=== PATIENT | female | born 1985 | race Two or more races ===

== ENCOUNTER 2017-03-14 09:19 | Outpatient (CLI) | payer MEDICAID ==
[~2017-03-14] VITALS: Ht 170.2 cm; Wt 84.6 kg
[~2017-03-14 09:19] MED LIST: FERR27TA PO; PREN1TAB49 PO
[2017-03-14 09:38] VITALS: Ht 170.2 cm; Wt 84.6 kg
[2017-03-14] MEDS ORDERED: FOLI-49 PO (09:38)
[2017-03-14] MEDS ORDERED: CALC-5 PO (09:38)
[2017-03-14 09:39] VITALS: BP 123/72; PULSE 90; RESP 18
[2017-03-14] MEDS ORDERED: ACETAMINOPHEN 500 MG TAB PO STA (09:57)
[2017-03-14] MEDS ORDERED: ONDANSETRON (ODT) 4 MG TAB ODT STA (09:57)
[2017-03-14] MEDS ORDERED: DOCUSATE SODIUM 100 MG CAP PO ONE (10:00)
[2017-03-14 10:17] LABS: BASOPHILS % 0.2 % (0.0-2.0); EOSINOPHILS % 0.2 % (0.0-7.0); HEMATOCRIT 33.3 % (37.0-47.0); HEMOGLOBIN 10.5 g/dl (12.0-16.0); LYMPHOCYTES # 1.1 10^3/ul (0.8-2.9); LYMPHOCYTES % 9.5 % (15.0-51.0); MEAN CORPUSCULAR HEMOGLOBIN 24.8 pg (29.0-33.0); MEAN CORPUSCULAR HGB CONC 31.5 g/dl (32.0-37.0); MEAN CORPUSCULAR VOLUME 78.5 fl (82.0-101.0); MEAN PLATELET VOLUME 10.1 fl (7.4-10.4); MONOCYTE # 0.3 10^3/ul (0.3-0.9); MONOCYTES % 2.1 % (0.0-11.0); NEUTROPHIL # 10.6 10^3/ul (1.6-7.5); NEUTROPHILS % 87.5 % (39.0-77.0); PLATELET COUNT 318 10^3/UL (140-415); RED BLOOD COUNT 4.24 10^6/ul (4.20-5.40); RED CELL DISTRIBUTION WIDTH 14.6 % (11.5-14.5); WHITE BLOOD COUNT 12.1 10^3/ul (4.8-10.8)
[2017-03-14 10:34] LABS: ADD UMIC YES; UR ASCORBIC ACID NEGATIVE (NEGATIVE); UR BACTERIA FEW /HPF (NONE SEEN); UR BILIRUBIN (Dip) NEGATIVE (NEGATIVE); UR BLOOD (Dip) NEGATIVE (NEGATIVE); UR CLARITY SLIGHTLY CLOUDY (CLEAR); UR COLOR YELLOW (YELLOW); UR GLUCOSE (Dip) NEGATIVE (NEGATIVE); UR KETONES (Dip) NEGATIVE (NEGATIVE); UR LEUKOCYTE ESTERASE (Dip) TRACE Leu/ul (NEGATIVE); UR MUCUS FEW /HPF (NONE SEEN); UR NITRITE (Dip) NEGATIVE (NEGATIVE); UR RBC 2 /HPF (0-5); UR SPECIFIC GRAVITY (Dip) 1.026 (1.003-1.030); UR SQUAMOUS EPITHELIAL CELL FEW /HPF (FEW); UR TOTAL PROTEIN (Dip) 1+ mg/dl (NEGATIVE); UR UROBILINOGEN (Dip) NEGATIVE (NEGATIVE)
--- NOTE | 2017-03-14 11:42 | RADRPT ---
PROCEDURE: Limited OB ultrasound CLINICAL INDICATION: Vaginal bleeding TECHNIQUE: Sonographic evaluation to assess the CHARISMA was performed. Transabdominal imaging of the gravid uterus was performed. COMPARISON: No prior exam is available for comparison. FINDINGS: There is a single live intrauterine with a heart rate of 148 bpm. position is cephalic. The placenta is anterior. The CHARISMA measures 10.7 cm. The cervix is closed with a length of 2.6 cm. IMPRESSION: The CHARISMA measures 10.7 cm. RPTAT: HH .Rosalina Jasmine MD, MD Date Time Electronically viewed and signed by .Rosalina Jasmine MD, on 03/14/2017 11:42 .G/
--- NOTE | 2017-03-14 11:57 | RADRPT ---
PROCEDURE: Retroperitoneal US. CLINICAL INDICATION: Flank pain TECHNIQUE: Multiple sonographic images of the kidneys and retroperitoneum were obtained. The imag es were reviewed on a PACS workstation. COMPARISON: No prior studies are available for comparison. FINDINGS: The kidneys are normal in size, contour, cortical thickness and cortical echogenicity. The right kidney measures 11.7 cm. The left kidney measures 12.2 cm. No kidney stones are visualized. There is mild right-sided hydronephrosis. The urinary bladder is not visualized. RPTAT: AA IMPRESSION: Mild right-sided hydronephrosis. .Yosi Forte MD, MD Date Time Electronically viewed and signed by .Yosi Forte MD, on 03/14/2017 11:57 .S/
[2017-03-14] MEDS ORDERED: MEPERIDINE 50 MG INJ IM ONE (12:00)
[2017-03-14] MEDS ORDERED: hydrOXYzine HCL 100 MG INJ IM ONE (12:00)
[2017-03-14] MEDS ORDERED: PROMETHAZINE 25 MG TAB PO ONE (12:30)
--- NOTE | 2017-03-14 14:31 | TRIAGE ---
OB Triage Datetime Report Generated by CPN: 03/14/2017 14:30 Datetime: 03/14/2017 13:30 Stage of : OB Triage Maternal Assessment Level of Consciousness: Fully Conscious Labor Evaluation Frequency: 0 Monitor Mode: External Resting Tone [place]: Relaxed Heart Rate FHR Baseline Rate: 135 Monitor Mode: External US Variability: Moderate 6-25 bpm Accelerations: 15X15 Decelerations: None Pain Assessment Pain Scale: 8 Pain Presence: Constant Pain Type: Ache Pain Location: Abdomen Pain Goal: 3 Pain Relief Measures: Pain Medication Given; Comfort Measures Vaginal Exam Membrane Status: Intact Vaginal Bleeding: None Datetime: 03/14/2017 11:00 Stage of : OB Triage Maternal Assessment Level of Consciousness: Fully Conscious Labor Evaluation Frequency: 0 Monitor Mode: External Resting Tone [place]: Relaxed Heart Rate FHR Baseline Rate: 140 Monitor Mode: External US Variability: Moderate 6-25 bpm Accelerations: 15X15 Decelerations: None Pain Assessment Pain Scale: 8 Pain Presence: Constant Pain Type: Ache Pain Location: Abdomen Pain Goal: 3 Pain Relief Measures: Pain Medication Given; Comfort Measures Vaginal Exam Membrane Status: Intact Vaginal Bleeding: None Datetime: 03/14/2017 10:30 Stage of : OB Triage Maternal Assessment Level of Consciousness: Fully Conscious Labor Evaluation Frequency: 0 Monitor Mode: External Resting Tone [place]: Relaxed Heart Rate FHR Baseline Rate: 130 Monitor Mode: External US Variability: Moderate 6-25 bpm Accelerations: 15X15 Decelerations: Variable Category: Category II Pain Assessment Pain Scale: 8 Pain Presence: Constant Pain Type: Ache Pain Location: Abdomen Pain Goal: 3 Pain Relief Measures: Pain Medication Given; Comfort Measures Vaginal Exam Membrane Status: Intact Vaginal Bleeding: None Datetime: 03/14/2017 09:34 Assessment Type: Triage EGA: 30.4 Maternal Assessment Level of Consciousness: Fully Conscious DTR's/Clonus: DTRs 2+; No Clonus Headache: Denies Blurred Vision: No Respiratory Effort: Unlabored; Regular Rhythm; Equal Expansion Breath Sounds, Left: Clear and Equal Breath Sounds, Right: Clear and Equal Nausea/Vomiting: Denies RUQ Epigastric Pain: Denies Lower Extremities Edema: None Degree: None Upper Extremities Edema: None Degree: None Facial Edema: None Fall Risk Assessment History of Falling: (0) No Secondary Diagnosis: (0) No Ambulatory Aid: (0) Bedrest/Nurse Assist IV Therapy: (0) No Gait: (0) Normal/Bedrest/Immobile Mental Status: (0) Oriented to Own Ability Fall Score: 0 Fall Risk Score Definition: No Risk: No action required Datetime: 03/14/2017 09:33 Time of Arrival: 03/14/2017 09:18 Arrived By: Ambulatory Arrived From: Home Chief Complaint: pt here c/o ABDOMINAL PAIN AND CONSTIPATION X 2 DAYS Movement: Present Contractions: Denies/Absent Rupture of Membranes: Denies Vaginal Bleeding: None Vaginal Discharge: Denies Recent Sexual Intercouse: Denies Abdominal Trauma: Not Applicable Patient Complaints: None Time Provider Notified: 03/14/2017 09:45 Provider Notified: CAMI Initial Plan: EFM/CBC/UA/PO HYDRATION/TYLENOL/ZOFRAN/COLACE/US CVL/CHARISMA/DEMEROL Datetime: 03/14/2017 09:31 Monitor Mode: External Monitor Mode: External US
--- NOTE | 2017-03-14 17:11 | PN ---
Triage Information Date/Time March 14, 2017 Reason for visit: Left flank pain Weeks of Gestation 30 weeks and 4 days /Para Diabetes: none Hypertention: none Additional information 31-year-old with IUP at 30 weeks and 4 days the pain is a care with Dr. Romero presents with a complaint of left flank pain persistent since today with radiation to the lower abdomen and thigh. Denies any fever or chills. Denies any dysuria. Denies any leaking of fluid, vaginal bleeding or decreased movement or uterine contractions. She had some nausea and vomiting and constipation. Reports had not have any bowel movement for 2 days. She also complains of constipation. Objective Vital Signs Date Time Temp Pulse Resp B/P Pulse Ox O2 Delivery O2 Flow Rate FiO2 03/14/17 09:39 98.3 90 18 123/72 97 Room Air Heart Rate: 130's Heart Rate Comments Cat 1 tracing Contractions: None Exam GA" A&O, in mild to moderate distress Abdomen: Soft, gravid, Fundal Height consistent with GA. non tender, no rebound tenderness, no rigidity . No CVA tenderness, NST: Cat 1. No contractions seen on the monitor Results/Medications Result Diagram: 03/14/17 0930 Results 24 hrs Laboratory Tests Test 03/14/17 09:30 White Blood Count 12.1 H Red Blood Count 4.24 Hemoglobin 10.5 L Hematocrit 33.3 L Mean Corpuscular Volume 78.5 L Mean Corpuscular Hemoglobin 24.8 L Mean Corpuscular Hemoglobin Concent 31.5 L Red Cell Distribution Width 14.6 H Platelet Count 318 Mean Platelet Volume 10.1 Neutrophils % 87.5 H Lymphocytes % 9.5 L Monocytes % 2.1 Eosinophils % 0.2 Basophils % 0.2 Nucleated Red Blood Cells % 0.0 Neutrophils # 10.6 H Lymphocytes # 1.1 Monocytes # 0.3 Eosinophils # 0.0 Basophils # 0.0 Nucleated Red Blood Cells # 0.0 Urine Color YELLOW Urine Clarity SLIGHTLY CLOUDY A Urine pH 5.0 Urine Specific [place] 1.026 Urine Ketones NEGATIVE Urine Nitrite NEGATIVE Urine Bilirubin NEGATIVE Urine Urobilinogen NEGATIVE Urine Leukocyte Esterase TRACE A Urine Microscopic RBC 2 Urine Microscopic WBC 7 H Urine Squamous Epithelial Cells FEW Urine Bacteria FEW A Urine Mucus FEW A Urine Hemoglobin NEGATIVE Urine Glucose NEGATIVE Urine Total Protein 1+ H Medications Demerol and Promethazine Tylenol Imaging Results PROCEDURE: Retroperitoneal US. CLINICAL INDICATION: Flank pain TECHNIQUE: Multiple sonographic images of the kidneys and retroperitoneum were obtained. The images were reviewed on a PACS workstation. COMPARISON: No prior studies are available for comparison. FINDINGS: The kidneys are normal in size, contour, cortical thickness and cortical echogenicity. The right kidney measures 11.7 cm. The left kidney measures 12.2 cm. No kidney stones are visualized. There is mild right-sided hydronephrosis. The urinary bladder is not visualized. RPTAT: AA IMPRESSION: Mild right-sided hydronephrosis. PROCEDURE: Limited OB ultrasound CLINICAL INDICATION: Vaginal bleeding TECHNIQUE: Sonographic evaluation to assess the CHARISMA was performed. Transabdominal imaging of the gravid uterus was performed. COMPARISON: No prior exam is available for comparison. FINDINGS: There is a single live intrauterine with a heart rate of 148 bpm. position is cephalic. The placenta is anterior. The CHARISMA measures 10.7 cm. The cervix is closed with a length of 2.6 cm. IMPRESSION: The CHARISMA measures 10.7 cm. Disposition: Discharge Assessment/Plan IUP at 30 weeks and 4 days Left flank pain, likely muscular cramp no CVA tenderness, No evidence of pyelonephritiis Resolved with IV pain meds elevated WBC, likely reactive DC home follow up at 24-48 hours with her PCP PTL precaution, kick counts RTC PRN any other complaint. JASIEL ALMANZA MD Mar 14, 2017 17:11
== END 2017-03-14 14:40 | disposition home or self-care (01) ==
LOC: L-D 09:19 → OBT 09:19
PROVIDERS: ATTEND Obstetrics & Gynecology
DX: O26.893 Other specified pregnancy related conditions, third trimester (principal); R10.9 Unspecified abdominal pain; K59.00 Constipation, unspecified; Z3A.30 30 weeks gestation of pregnancy
CPT/HCPCS: 76775; 76815; 76817; 81001; 85025; 96372; J2175; Z7500; Z7610; G0463

== ENCOUNTER 2017-05-04 09:58 | Outpatient (CLI) | payer MEDICAID, OTHER ==
[~2017-05-04] VITALS: Ht 170.2 cm; Wt 84.5 kg
[~2017-05-04 09:58] MED LIST changes: +CALC-5 PO; +FOLI-49 PO
[2017-05-04 10:01] VITALS: Ht 170.2 cm; Wt 84.5 kg
[2017-05-04 10:02] VITALS: BP 124/75
--- NOTE | 2017-05-04 10:34 | RADRPT ---
PROCEDURE: US OB biophysical profile. CLINICAL INDICATION: Biophysical profile TECHNIQUE: Multiple sonographic images of the pelvis were obtained. The images were reviewed on a PACS workstation. COMPARISON: April 23, 2017 FINDINGS: There is a single live intrauterine , in cephalic presentation. A normal heart rate i s identified measuring 129 beats per minute. The amniotic fluid index is within normal limits measur ing 8.9 cm. The placenta is located anteriorly and grade 2. Biophysical profile: movement 2/2 tone 2/2. breathing 2/2 CHARISMA 2/2 Total 01/30 IMPRESSION: 1. Biophysical profile score of 8/8. 2. Single live intrauterine in cephalic presentation with normal heart rate of 129 b pm. 3. Normal amniotic fluid index of 8.9 cm. Physician Jaspreet Date Time Electronically viewed and signed by Physician Jaspreet on 05/04/2017 10:34 MARIA LUISA/
--- NOTE | 2017-05-04 11:06 | PN ---
Triage Information Date/Time Reason for visit: NST BPP Weeks of Gestation 36+ /Para 4/3 Diabetes: gestational Diabetes management: diet controlled Hypertention: none Objective Vital Signs Date Time Temp Pulse Resp B/P Pulse Ox O2 Delivery O2 Flow Rate FiO2 05/04/17 10:02 98.4 124/75 Room Air Heart Rate: 140's Contractions: None Disposition: Discharge Assessment/Plan NST reassuring BPP 01/30 Precautions discussed Follow up with provider SOFIE OLIVEROS M.D. May 04, 2017 11:05
--- NOTE | 2017-05-04 11:12 | TRIAGE ---
OB Triage Datetime Report Generated by CPN: 05/04/2017 11:12 Datetime: 05/04/2017 11:01 Stage of : OB Triage Datetime: 05/04/2017 11:00 Labor Evaluation Frequency: 0 Monitor Mode: External Pattern: Normal: <= 5 Contractions in 10 Minutes Resting Tone [place]: Relaxed Heart Rate FHR Baseline Rate: 145 Monitor Mode: External US Variability: Moderate 6-25 bpm Accelerations: 15X15 Decelerations: None Category: Category I Datetime: 05/04/2017 10:41 Labor Evaluation Frequency: 0 Monitor Mode: External Pattern: Normal: <= 5 Contractions in 10 Minutes Resting Tone [place]: Relaxed Heart Rate FHR Baseline Rate: 145 Monitor Mode: External US Variability: Moderate 6-25 bpm Accelerations: 15X15 Decelerations: None Category: Category I Datetime: 05/04/2017 10:09 Stage of : OB Triage Assessment Type: Triage Maternal Assessment Level of Consciousness: Fully Conscious DTR's/Clonus: DTRs 2+; No Clonus Headache: Denies Blurred Vision: No Respiratory Effort: Unlabored; Regular Rhythm; Equal Expansion Breath Sounds, Left: Clear and Equal Breath Sounds, Right: Clear and Equal Nausea/Vomiting: Denies RUQ Epigastric Pain: Denies Lower Extremities Edema: None Degree: None Upper Extremities Edema: None Facial Edema: None Temperature Route: Oral Fall Risk Assessment History of Falling: (0) No Secondary Diagnosis: (0) No Ambulatory Aid: (0) Bedrest/Nurse Assist IV Therapy: (0) No Gait: (0) Normal/Bedrest/Immobile Mental Status: (0) Oriented to Own Ability Fall Score: 0 Fall Risk Score Definition: No Risk: No action required Monitor Mode: External Heart Rate FHR Baseline Rate: 145 Monitor Mode: External US Variability: Moderate 6-25 bpm Accelerations: 15X15 Decelerations: None Category: Category I Pain Assessment Pain Scale: 0 Datetime: 05/04/2017 10:08 Time of Arrival: 05/04/2017 09:54 EGA: 37.6 Arrived By: Ambulatory Arrived From: Dr. Burgos Chief Complaint: sent from NST for NST/BPP?CHARISMA for GDM insurance not approved at clinic Movement: Present Contractions: Denies/Absent Rupture of Membranes: Denies Vaginal Bleeding: None Vaginal Discharge: Denies Recent Sexual Intercouse: Denies Abdominal Trauma: Not Applicable Patient Complaints: Other Initial Plan: nst/bpp Datetime: 03/14/2017 14:30 Stage of : OB Triage Maternal Assessment Level of Consciousness: Fully Conscious Labor Evaluation Frequency: 0 Monitor Mode: External Resting Tone [place]: Relaxed Heart Rate FHR Baseline Rate: 135 Monitor Mode: External US Variability: Moderate 6-25 bpm Accelerations: 15X15 Decelerations: None Pain Assessment Pain Scale: 8 Pain Presence: Constant Pain Type: Ache Pain Location: Abdomen Pain Goal: 3 Pain Relief Measures: Pain Medication Given; Comfort Measures Vaginal Exam Membrane Status: Intact Vaginal Bleeding: None Datetime: 03/14/2017 09:34 EGA: 30.4 Fall Score: 0 Fall Risk Score Definition: No Risk: No action required
== END 2017-05-04 11:10 | disposition home or self-care (01) ==
LOC: L-D 09:58 → OBT 09:58
PROVIDERS: ATTEND Obstetrics & Gynecology
DX: O24.410 Gestational diabetes mellitus in pregnancy, diet controlled (principal); Z3A.36 36 weeks gestation of pregnancy
CPT/HCPCS: 76818; Z7500; G0463

== ENCOUNTER 2017-05-15 09:00 | Inpatient (IN) | payer OTHER ==
[~2017-05-15] VITALS: Ht 165.1 cm; Wt 82.7 kg
[2017-05-15 10:12] VITALS: BP 118/72; PULSE 101; RESP 18; Ht 165.1 cm; Wt 82.7 kg
[2017-05-15] MEDS ORDERED: DEXTROSE 5%-LR 1,000 ML IV SCH (11:20)
[2017-05-15] MEDS: LACTATED RINGER'S 1,000 ML IV SCH ×2 (11:24→15:16)
[2017-05-15] MEDS ORDERED: BUTORPHANOL 2 MG INJ IV PRN ×2 (11:30)
[2017-05-15] MEDS ORDERED: IBUPROFEN 600 MG TAB PO PRN (11:30)
[2017-05-15] MEDS ORDERED: METHYLERGONOVINE 0.2 MG INJ IM PRN (11:30)
[2017-05-15] MEDS ORDERED: CARBOPROST 250 MCG INJ IM PRN (11:30)
[2017-05-15] MEDS ORDERED: OXYCODONE/ACETAMINOPHEN (5/325) TAB PO PRN (11:30)
[2017-05-15] MEDS ORDERED: MISOPROSTOL 200 MCG TAB PR PRN (11:30)
[2017-05-15] MEDS ORDERED: OXYTOCIN 30 UNITS/LR 500 ML IV PRN (11:30)
[2017-05-15] MEDS ORDERED: OXYTOCIN 30 UNITS/LR 500 ML IV SCH ×3 (11:30)
[2017-05-15] MEDS ORDERED: LIDOCAINE 1% (MPF) 30 ML INJ INJ PRN (11:30)
[2017-05-15 11:45] LABS: BASOPHILS % 0.3 % (0.0-2.0); EOSINOPHILS # 0.1 10^3/ul (0.0-0.5); EOSINOPHILS % 0.8 % (0.0-7.0); HEMOGLOBIN 11.5 g/dl (12.0-16.0); LYMPHOCYTES # 1.6 10^3/ul (0.8-2.9); LYMPHOCYTES % 17.2 % (15.0-51.0); MEAN CORPUSCULAR HEMOGLOBIN 24.6 pg (29.0-33.0); MEAN CORPUSCULAR HGB CONC 31.9 g/dl (32.0-37.0); MEAN CORPUSCULAR VOLUME 77.1 fl (82.0-101.0); MEAN PLATELET VOLUME 10.6 fl (7.4-10.4); MONOCYTE # 0.5 10^3/ul (0.3-0.9); MONOCYTES % 5.3 % (0.0-11.0); NEUTROPHIL # 7.2 10^3/ul (1.6-7.5); NEUTROPHILS % 76.1 % (39.0-77.0); PLATELET COUNT 319 10^3/UL (140-415); RED BLOOD COUNT 4.67 10^6/ul (4.20-5.40); RED CELL DISTRIBUTION WIDTH 14.3 % (11.5-14.5); WHITE BLOOD COUNT 9.5 10^3/ul (4.8-10.8)
[2017-05-15 12:22] LABS: INR 1.05; PARTIAL THROMBOPLASTIN TIME 35.9 Sec (25.0-35.0); PROTIME 13.7 Sec (12.2-14.2); PT RATIO 1.1
[2017-05-15] MEDS ORDERED: FENTAnyl 2MCG/ML-ROPIV 0.2% 100 ML ONE (15:13)
--- NOTE | 2017-05-15 15:19 | NSTRPT ---
NST Information Datetime Report Generated by CPN: 05/15/2017 15:18 Datetime: 05/14/2017 15:00 NST Information EGA: 39.2 Test Number: 4 Time on Monitor: 05/14/2017 15:31 Time off Monitor: 05/14/2017 15:54 NST Duration (Min): 23 Reason for NST: Diabetes Mellitus; Other Reason for NST Other: A1DM Test and Monitor Explained: Monitor Explained; Test Explained Pulse: 87 Resp: 16 SBP: 107 DBP: 58 Test Evaluation NST Interventions: None Patient States Movement: Present Contraction Frequency: irreg FHR Baseline : 135 Variability: Moderate 6-25bpm Accelerations: 15X15 Decelerations: None FHR Category: Category I NST Results: Reactive Comments: To u/s, cephalic, lu 7.3, fbs [address] Romero, order to schedule pt for induction for 05/15 am. Pt scheuled for induction for 05/15 at 0900 Electronically Signed By E-Signature: with User ID: [id number] Datetime: 05/11/2017 15:03 NST Information EGA: 38.6 NST Duration (Min): 26 Datetime: 05/08/2017 13:24 NST Information EGA: 38.3 NST Duration (Min): 26 Datetime: 04/23/2017 10:26 NST Information EGA: 36.2 NST Duration (Min): 36
[2017-05-15] MEDS ORDERED: NALOXONE (0.4 MG/ML) INJ IV PRN (16:00)
[2017-05-15] MEDS ORDERED: LACTATED RINGER'S 1,000 ML IV PRN (16:00)
[2017-05-15] MEDS ORDERED: FENTAnyl 2MCG/ML-ROPIV 0.2% 100 ML BAG EPI SCH (16:00)
--- NOTE | 2017-05-15 17:45 | HP ---
Date/Time of Note Date/Time of Note DATE: 05/15/17 TIME: 17:39 OB - History Hx of Present Free Text/Dictation 31 years old female EDC May 19, 2017 admitted to [facility] at 39 weeks and 3 days in labor pelvic examination and admission cervix 4-5 cm dilated 60% effaced vertex at -3 station contractions every 5-10 minutes mild to moderate category 1 for heart tracing, may require labor augmentation Chief Complaint: Labor contract Estimated Due Date: May 19, 2017 : 3 Para: 2 Care: Good Care Ultrasounds: Normal mid trimester US Obstetrical Complications: Gestational Diabetes Medical Complications: None Past Family/Social History * Past Medical, Surgical, Family and Obstetric Histories reviewed from chart. Rubella: immune RPR/VDRL: Negative GBS Status: Negative HBsAG: Negative OB Admission Exam Vital Signs Vital Signs Vital Signs Date Time Temp Pulse Resp B/P Pulse Ox O2 Delivery O2 Flow Rate FiO2 05/15/17 10:12 98.3 101 18 118/72 Room Air Physical Exam HEENT: WNL Heart: Rhythm Normal Lungs: Clear, Equal Abdomen: WNL Extremities: Normal Cervical Dilatation: 4cm Effacement: 75% Station: -1 Membranes: Intact Heart Rate: 130's Accelerations: Accelerations Present Decelerations: No Decelerations Varibility: Moderate Contractions on Admission: >10 Minutes Apart Intensity: Moderate Last 72 hourBlood Glucose Bedside Glucose - 72 Hours Test 05/15/17 15:44 05/15/17 16:30 Bedside Glucose 59mg/dL (70-220) L 81mg/dL (70-220) Last 72 hours Lab Results CBC & BMP 05/15/17 10:50 OB Assessment/Plan Reason for admission: other (39 weeks 3 days in labor) Other plan: 31 years old EDC May 19 2017 admitted to [facility] in labor, pelvic examination and admission cervix to 4-5 cm dilated 70 - 80% effaced vertex at -1 station due to spaced out traction and adequate quality requires labor augmentation ZORA FORREST MD May 15, 2017 17:45
--- NOTE | 2017-05-15 17:50 | LDN ---
Date/Time of Note Date/Time of Note DATE: 05/15/17 TIME: 17:46 Delivery Summary Normal spontaneous vaginal delivery of a baby boy from OA position shoulders delivered without any difficulty rest of the baby's body followed cord that was around the baby's neck loose clamped after stopped pulsation placenta spontaneous expulsion inspected complete blood loss 200 cc patient sustained small 1 cm perineal laceration repaired with 3-0 chromic catgut Weeks of Gestation 39 weeks and 3 days Placenta Delivered: Spontaneously Meconium: none Episiotomy: No Laceration repair: 1 cm first-degree perineal laceration Anesthesia type: Epidural Estimated blood loss: 200 Sponge & Needle done & correct: Yes All needle counts correct: Yes Any foreign bodies felt in the: No Problems: Infant Delivery Information Sex Sex: male Apgars 1 Minute: 8 5 Minute: 9 Suctioning Nose & mouth suctioned at nu: No Delee suction performed: No Umbilical Cord Umbilical cord with: 3 Vessels Cord presentations: nuchal cord Nuchal cord present X: 1 Cord Blood was obtained: Yes ZORA FORREST MD May 15, 2017 17:50
[2017-05-15 20:00] VITALS: BP 121/86; PULSE 73; RESP 18
[2017-05-15] MEDS ORDERED: OXYCODONE/ASPIRIN (4.88/325) TAB PO PRN ×2 (20:00)
[2017-05-15] MEDS ORDERED: ONDANSETRON 4 MG INJ IV PRN (20:00)
[2017-05-15] MEDS ORDERED: ACETAMINOPHEN 325 MG TAB PO PRN (20:00)
[2017-05-15] MEDS ORDERED: LANOLIN 7 GM TUBE TOP PRN (20:00)
[2017-05-15] MEDS ORDERED: DIBUCAINE 1% 30 GM OINT PR PRN (20:00)
[2017-05-15] MEDS ORDERED: HYDROCODONE/APAP (5/325) TAB PO PRN ×2 (20:00)
[2017-05-15] MEDS: OXYTOCIN 30 UNITS/LR 500 ML IV SCH ×2 (20:00→21:46)
[2017-05-15] MEDS ORDERED: WITCH HAZEL/GLYCERIN PAD PR PRN (20:00)
[2017-05-15 20:30] VITALS: BP 110/66; PULSE 86; RESP 18
[2017-05-15] MEDS: SENNA/DOCUSATE NA (8.6MG/50MG) TAB PO SCH (21:12)
[2017-05-15] MEDS: BENZOCAINE 20% 56 ML SPRAY TOP PRN (21:13)
[2017-05-15] MEDS: IBUPROFEN 600 MG TAB PO SCH (23:50)
[2017-05-16 03:27] VITALS: BP 130/86; PULSE 76; RESP 18
[2017-05-16] MEDS: IBUPROFEN 600 MG TAB PO SCH ×4 (05:47→23:31)
[2017-05-16 07:45] VITALS: BP 108/64; PULSE 79; RESP 19
--- NOTE | 2017-05-16 09:34 | QN ---
Documentation Comment Post normal vaginal delivery day 1 Afebrile Vital signs are stable Abdomen soft, uterus firm, lochia normal extremities normal, relation encouraged ZORA FORREST MD May 16, 2017 09:34
[2017-05-16 09:46] LABS: BASOPHILS % 0.3 % (0.0-2.0); EOSINOPHILS # 0.2 10^3/ul (0.0-0.5); EOSINOPHILS % 1.5 % (0.0-7.0); HEMATOCRIT 36.8 % (37.0-47.0); HEMOGLOBIN 11.6 g/dl (12.0-16.0); LYMPHOCYTES # 1.9 10^3/ul (0.8-2.9); LYMPHOCYTES % 15.6 % (15.0-51.0); MEAN CORPUSCULAR HEMOGLOBIN 24.3 pg (29.0-33.0); MEAN CORPUSCULAR HGB CONC 31.5 g/dl (32.0-37.0); MEAN CORPUSCULAR VOLUME 77.1 fl (82.0-101.0); MEAN PLATELET VOLUME 10.5 fl (7.4-10.4); MONOCYTE # 0.6 10^3/ul (0.3-0.9); MONOCYTES % 4.8 % (0.0-11.0); NEUTROPHIL # 9.3 10^3/ul (1.6-7.5); NEUTROPHILS % 77.4 % (39.0-77.0); PLATELET COUNT 292 10^3/UL (140-415); RED BLOOD COUNT 4.77 10^6/ul (4.20-5.40); WHITE BLOOD COUNT 12.1 10^3/ul (4.8-10.8)
[2017-05-16] MEDS: SENNA/DOCUSATE NA (8.6MG/50MG) TAB PO SCH ×2 (09:58→20:39)
[2017-05-16 16:00] VITALS: BP 112/74; PULSE 81; RESP 19
[2017-05-16 19:40] VITALS: BP 126/73; PULSE 81; RESP 20
[2017-05-16] MEDS: BENZOCAINE 20% 56 ML SPRAY TOP PRN (20:39)
[2017-05-17 04:18] VITALS: BP 130/79; PULSE 70; RESP 19
[2017-05-17] MEDS: IBUPROFEN 600 MG TAB PO SCH ×2 (05:48→11:39)
[2017-05-17 07:45] VITALS: BP 117/67; PULSE 73; RESP 19
[2017-05-17] MEDS: SENNA/DOCUSATE NA (8.6MG/50MG) TAB PO SCH (08:50)
[2017-05-17] MEDS ORDERED: MEASLES,MUMPS,RUBELLA VACCINE INJ SC* ONE (09:00)
--- NOTE | 2017-05-17 10:05 | PD.PPDC ---
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
--- NOTE | 2017-05-17 10:09 | DS ---
Date/Time of Note Date/Time of Note DATE: 05/17/17 TIME: 10:07 Discharge Summary Admission/Discharge Info Admit Date/Time May 15, 2017 at 09:47 Discharge Date/Time May 17, 2017 at 10 AM Discharge Diagnosis Post normal vaginal delivery day 2 Patient Condition: Good Procedures Normal vaginal delivery Hx of Present Illness Term in labor Hospital Course Satisfactory recovery uneventful Home Meds Reported Medications Calcium Carbonate/Vitamin D2 (Calcium Oys Shell 250 mg Tab) 1 Each Tablet, 1 EACH PO DAILY, TAB 03/14/17 Folic Acid* (Folic Acid*) 1 Mg Tablet, 1 MG PO DAILY, TAB 03/14/17 Ferrous Sulfate (Iron) 1 Tab Tablet, 1 TAB PO DAILY 06/22/12 Vits W-Ca,Fe,Fa(<1MG) () 1 Tab Tablet, 1 TAB PO DAILY 06/22/12 Follow-up Plan instructions given recommended to make appointment to be seen at the clinic in 2 weeks Primary Care Provider Not On Staff Doctor Time spent on discharge: < 30 minutes ZORA FORREST MD May 17, 2017 10:09
[2017-05-17] MEDS ORDERED: INFLUENZA VIRUS VACCINE 0.5 ML (DISPENSING) IM* ONE (12:00)
[2017-05-18] MEDS ORDERED: INFLUENZA VIRUS VACCINE 0.5 ML (DISPENSING) IM* ONE (09:00)
== END 2017-05-17 14:00 | disposition home or self-care (01) | DRG 775 ==
LOC: L-D 09:47 → PP1 19:55
PROVIDERS: ADMIT Obstetrics & Gynecology; ATTEND Obstetrics & Gynecology
PROC: 10E0XZZ Delivery of Products of Conception, External Approach (ICD-10-PCS; principal; 2017-05-15)
PROC: 0HQ9XZZ Repair Perineum Skin, External Approach (ICD-10-PCS; 2017-05-15)
PROC: 3E033VJ Introduction of Other Hormone into Peripheral Vein, Percutaneous Approach (ICD-10-PCS; 2017-05-15)
DX: O24.429 Gestational diabetes mellitus in childbirth, unspecified control (principal); O69.81X0 Labor and delivery complicated by cord around neck, without compression, not applicable or unspecified; O70.0 First degree perineal laceration during delivery; Z3A.39 39 weeks gestation of pregnancy; Z37.0 Single live birth
CPT/HCPCS: 62319; 82947; 82962; 85025; 85610; 85730; 86592; 86900; 86901; 87340; 90686; J2590; J3010; J7120; J7121